=== PATIENT | female | born 1980 | race Caucasian/White ===

== ENCOUNTER 2016-03-11 16:47 | Outpatient (CLI) | payer OTHER ==
[2016-03-11 19:26] LABS: ALT (SGPT) 45 U/L (0-55); AST (SGOT) 18 U/L (5-34); Alkaline Phosphatase 61 U/L (40-150); Anion Gap 15 mmol/L (10-20); BUN (Urea Nitrogen) 9 mg/dL (7.0-18.7); Bilirubin, Total 0.4 mg/dL (0.2-1.2); Calc. Creatinine Clearance 0 mL/min (70-130); Calcium 9.4 mg/dL (7.8-10.44); Carbon Dioxide 22 mmol/L (22-29); Chloride 109 mmol/L (98-107); Estimated GFR-MDRD 84; Globulin 2.6 g/dL (2.4-3.5); Protein, Total 7.2 g/dL (6.0-8.3)
[2016-03-11 19:38] LABS: #Lymphocytes 1.4 thou/uL (1.20-3.40); #Monocytes 0.3 thou/uL (0.11-0.59); #Neutrophils 5.5 thou/uL (1.40-6.50); %Basophils 0.7 % (0.0-1.0); %Eosinophils 0.5 % (0.0-10.0); %Lymphocytes 19.1 % (21.0-51.0); %Monocytes 3.5 % (0.0-10.0); Mean Platelet Volume 8.7 fL (7.4-10.4); Red Blood Cell (RBC) Count 4.85 mill/uL (4.20-5.40); White Blood Cell (WBC) Count 7.2 thou/uL (4.8-10.8)
[2016-03-11 19:49] LABS: Hemoglobin A1c 5.1 % (4.0-6.0)
== END 2016-03-11 16:48 | disposition home or self-care (01) ==
LOC: NAV SJFMSP 16:47
PROVIDERS: ATTEND Family Medicine
DX: F32.89 Other specified depressive episodes (principal)
CPT/HCPCS: 80053; 83036; 84439; 84443; 85025

== ENCOUNTER 2016-09-12 15:38 | Emergency (ER) | payer OTHER ==
[2016-09-12] MEDS ORDERED: Tetracaine HCl 0.5% Ophth Soln 2 ML Bottle ONE (15:52)
[2016-09-12] MEDS ORDERED: Fluorescein Opthalmic Strip ONE (15:52)
== END 2016-09-12 16:09 | disposition home or self-care (01) ==
LOC: NAV ERS 15:38
DX: S05.01XA Injury of conjunctiva and corneal abrasion without foreign body, right eye, initial encounter (principal); W50.0XXA Accidental hit or strike by another person, initial encounter
CPT/HCPCS: 99283